=== PATIENT | female | born 2000 | race Caucasian/White ===

== ENCOUNTER 2025-06-02 01:08 | Emergency (ER) | payer OTHER, SELFPAY ==
[2025-06-02 01:14] VITALS: BP 113/78; PULSE 114; TEMP 36.6; O2SAT 100; BMI 21.0
--- NOTE | 2025-06-02 01:36 | ECG_ITS ---
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 Measurements Intervals [place] Rate: 105 P: 76 TN: 146 QRS: 82 QRSD: 100 T: -58 QT: 304 QTc: 365 Interpretive Statements 1120 Sinus tachycardia 4664 Twave abnormality, possible inferior ischemia 9150 abnormal ECG No previous ECG available for comparison Electronically Signed On 06-02-2025 5:49:06 EDT by BRIAN HALE M.D.
--- NOTE | 2025-06-02 01:36 | XR_ITS ---
[place] [id number] Patient Name: IVANA PACK MRN: [id number] date: 2000 Sex: F Assigned Patient Location: ER Current Patient Location: Accession/Order Number: [id number] Exam Date: 06/02/2025 01:45 Report Date: 06/02/2025 08:28 At the request of: ARY OLIVO DO Procedure: XR chest 2V PA AND LATERAL CHEST: CLINICAL HISTORY: CP COMPARISON: No recent comparisons FINDINGS: Unremarkable cardiomediastinal silhouette. Lungs clear. No effusion or pneumothorax. IMPRESSION: NO ACUTE CARDIOPULMONARY ABNORMALITY. Impression dictated by: Eugene Martínez M.D. 06/02/2025 8:28 AM Dictation Location: [place] [address] Electronically authenticated by: [id number] Y Date: 06/02/2025 08:28
[2025-06-02 03:42] LABS: Blood Urea Nitrogen 15.0 mg/dL (7.0-18.0); Calcium 8.6 mg/dL (8.5-10.1); Carbon Dioxide 24.6 mmol/L (21.0-32.0); Estimated GFR (African America >60 (>=60 mL/min/1.73m^2); Estimated GFR (Non-African Ame >60 (>=60 mL/min/1.73m^2); Glucose 70 mg/dL (74-106)
[2025-06-02 03:45] LABS: Hematocrit 39.2 % (36.0-48.0); Hemoglobin 13.5 g/dL (12.0-16.0); Immature Granulocytes Abs Auto 0.01 10^3/uL (0.00-0.03); Immature Granulocytes Pct Auto 0.1 % (0.0-0.5); Lymphocytes Absolute Auto 2.7 10^3/uL (1.2-3.8); Mean Corpuscular HGB Conc 34.4 g/dL (29.9-35.2); Mean Corpuscular Hemoglobin 31.0 pg (26.7-34.0); Mean Corpuscular Volume 90.1 fL (81.0-99.0); Platelet Count 218 10^3/uL (150-450); Red Blood Count 4.35 10^6/uL (4.20-5.40); Sodium 141 mmol/L (136-145); White Blood Count 7.2 10^3/uL (4.0-11.0)
[2025-06-02 03:46] LABS: Anion Gap 14.2; Chloride 105 mmol/L (98-107); Potassium 2.8 mmol/L (3.5-5.1)
[2025-06-02] MEDS: POTASSIUM CHLORIDE 10 MEQ ER TABLET 20 MEQ PO (04:15)
--- NOTE | 2025-06-02 05:41 | ED_ITS ---
HPI HPI - General Adult General Chief complaint: Allergic Reaction Stated complaint: allergic reaction Time Seen by Provider: 06/02/25 01:24 Source: patient Mode of arrival: ambulance History of Present Illness HPI narrative: Patient is a 25-year-old female, history significant for anxiety, presenting to the emergency department with her mother via EMS for concerns of chest pain and shortness of breath. Patient states she was laying in bed tonight when she started becoming hyperaware of her blinking and breathing. She states that she started to become lightheaded and felt like she could not catch her breath. She then experienced chest discomfort. She started hyperventilating and her mother called 911. Patient is a history of anxiety and recurrent vasovagal syncope. She has been worked up by cardiology in the past 6 months and was given a 1 year follow-up appointment. Currently, the patient states she feels a little lightheaded, but her symptoms have improved spontaneously. She denies history of DVT/PE, leg swelling, recent immobilizations, recent surgical procedures. She is not on oral contraceptive pills. Last menstrual cycle ended 3 weeks ago. Related Data Allergies Allergy/AdvReac Type Severity Reaction Status Date / Time chloral hydrate Allergy Weakness Verified 06/02/25 01:13 prochlorperazine (From Allergy Muscle Pain Verified 06/02/25 01:13 Compazine) Review of Systems ROS Status of ROS 10 or more systems reviewed and unremark able except as noted in history and below PFSH PFSH Social History Little interest or pleasure in doing things: not at all Feeling down, depressed, or hopeless: not at all Exam Narrative Exam Narrative: CONSTITUTIONAL: Patient appears anxious, answering questions and following commands appropriately SKIN: Was warm and dry. EYES: No conjunctival pallor. EARS, NOSE, THROAT: No JVD. RESPIRATORY: Clear to auscultation bilaterally, no wheezes, crackles, or stridor, no use of accessory muscles CARDIOVASCULAR: Tachycardic rate and regular rhythm. There is no S3, S4, murmur, rub. GASTROINTESTINAL: Abdomen was soft, non-tender, and non-distended. There is no guarding or rebound tenderness MUSCULOSKELETAL: There was no lower extremity edema, erythema, or tenderness. NEUROLOGIC: Patient is awake and alert. Ambulates with a steady gait. Facies were symmetrical. Constitutional Vital Signs, click to edit/add: Last Vital Signs Temp 97.8 F 10/11/25 01:14 Pulse 114 H 06/02/25 01:14 Resp 20 06/02/25 01:14 BP 113/78 06/02/25 01:14 Pulse Ox 100 06/02/25 01:14 O2 Del Method Room Air 06/02/25 01:14 Course Vital Signs Vital signs: Vital Signs Temperature 97.8 F 06/02/25 01:14 Pulse Rate 114 H 06/02/25 01:14 Respiratory Rate 20 06/02/25 01:14 Blood Pressure 113/78 06/02/25 01:14 Pulse Oximetry 100 06/02/25 01:14 Oxygen Delivery Method Room Air 06/02/25 01:14 Temperature 97.8 F 06/02/25 01:14 Pulse Rate 114 H 06/02/25 01:14 Respiratory Rate 06/02/25 01:14 Blood Pressure 113/78 06/02/25 01:14 Pulse Oximetry 100 06/02/25 01:14 Oxygen Delivery Method Room Air 06/02/25 01:14 Medical Decision Making MDM Narrative Medical decision making narrative: Patient is a 25-year-old female, history significant for recurrent vasovagal syncope and anxiety, presenting to the emergency department with her mother via EMS for concerns of acute onset chest pain, shortness of breath, and lightheadedness that began while laying in bed tonight. Her vital signs on arrival were significant for tachycardia, otherwise were within normal limits. She is afebrile and hemodynamically stable. She has a normal physical examination. Patient presentation seems to be consistent with an anxiety attack, panic attack. I have low concern for cardiogenic etiologies of her symptoms, however, cardiac workup was obtained to rule out etiology such as ACS, arrhythmia, pneumothorax, or other electrolyte derangement. Chest x-ray independently reviewed/interpreted by myself demonstrated no acute cardiopulmonary process. 12 Lead EKG: Sinus tachycardia at a rate of 105. Normal axis. There are T wave inversions in the inferior leads. No ST segment elevations. QRS, [place], and QTc interval within normal limits. Final impression: Sinus tachycardia nonspecific ST changes. No evidence of STEMI. Laboratory studies were unremarkable. No significant electrolyte or metabolic derangement. She was mildly hypokalemic, however this is likely related to hyperventilation. She was given 20 mEq of oral potassium chloride. No evidence of acute kidney injury. No anemia, leukocytosis, or thrombocytopenia. Troponin and D-dimer not elevated. On reevaluation, patient feels improved. She was sleeping comfortably when I went to reevaluate her. She ambulated to the bathroom without feeling presyncopal. She has a HEART score of 0 making her low risk for MACE. Her d- dimer is normal and has Well's Score of 1, making her low risk for PE. I do believe the patient is stable for discharge. Patient's presentation is most likely consistent with panic attack. They were instructed to follow up with their PCP and psychiatrist for further care. Return precautions were given including any new or worsening symptoms. Patient understands and agrees to the plan. FINAL IMPRESSION: #Acute anxiety attack, resolved DISPOSITION: Discharged home CONDITION: Good Lab Data Lab results reviewed: Yes I reviewed the patient's lab results Labs: Lab Results 06/02/25 Range/Units 02:00 WBC 7.2 (4.0-11.0) 10^3/uL RBC 4.35 (4.20-5.40) 10^6/uL Hgb 13.5 (12.0-16.0) g/dL Hct 39.2 (36.0-48.0) % MCV 90.1 (81.0-99.0) fL MCH 31.0 (26.7-34.0) pg MCHC 34.4 (29.9-35.2) g/dL RDW 11.7 (11.0-15.0) % Plt Count 218 (150-450) 10^3/uL MPV 10.2 (9.5-13.5) fL Neut % (Auto) 52.0 (43.0-75.0) % Lymph % (Auto) 36.7 (20.5-60.0) % [place] % (Auto) 9.8 (1.7-12.0) % Eos % (Auto) 0.8 L (0.9-7.0) % Baso % (Auto) 0.6 (0.2-2.0) % Neut # (Auto) 3.8 (1.4-6.5) 10^3/uL Lymph # (Auto) 2.7 (1.2-3.8) 10^3/uL [place] # (Auto) 0.7 (0.3-0.8) 10^3/uL Eos # (Auto) 0.1 (0.0-0.7) 10^3/uL Baso # (Auto) 0.0 (0.0-0.1) 10^3/uL Abs Immat Gran (auto) 0.01 (0.00-0.03) 10^3/uL Imm/Tot Granulo (auto) 0.1 (0.0-0.5) % D-Dimer <0.19 (<=0.59) mg/L FEU Sodium 141 (136-145) mmol/L Potassium 2.8 L* (3.5-5.1) mmol/L Chloride 105 (98-107) mmol/L Carbon Dioxide 24.6 (21.0-32.0) mmol/L Anion Gap 14.2 BUN 15.0 (7.0-18.0) mg/dL Creatinine 0.81 (0.55-1.02) mg/dL Est GFR ( Amer) >60 (>=60 mL/min/1.73m^2) Est GFR (Non-Af Amer) >60 (>=60 mL/min/1.73m^2) BUN/Creatinine Ratio 18.5 Glucose 70 L (74-106) mg/dL Calcium 8.6 (8.5-10.1) mg/dL Troponin I High Sens <4.0 L (4.0-51.3) pg/mL Imaging Data Chest x-ray: Attestation: I personally reviewed and interpreted this imaging study as follows: ECG Data Attestation: I personally reviewed and interpreted this ECG as follows: Discharge Plan Discharge Chief Complaint: Allergic Reaction Clinical Impression: Anxiety Patient Disposition: Home, Self-Care Time of Disposition Decision: 04:08 Condition: Good Mode of Transportation: Private Vehicle Print Language: Turkish Instructions: Anxiety (ED) Referrals: STEPHANIE FISHER [Primary Care Provider, Family Practice] - 1 week Discharge Date/Time: 06/02/25 04:19
== END 2025-06-02 04:19 | disposition home or self-care (01) ==
PROVIDERS: Emergency Provider Student in an Organized Health Care Education/Training Program; Family Provider Family Medicine; PCP Family Medicine
DX: F41.9 Anxiety disorder, unspecified (principal); E87.6 Hypokalemia
CPT/HCPCS: 36415; 71046; 80048; 84484; 85025; 85378; 93005; 99285